=== PATIENT | male | born 1970 | race Asian ===

== ENCOUNTER 2025-06-22 06:58 | Day surgery (SDC) | payer OTHER ==
[~2025-06-22] VITALS: Ht 161.3 cm; Wt 63.1 kg
[~2025-06-22 06:58] MED LIST: SODIUM CHLORIDE 0.9% 1,000 ML ONE
[2025-06-22] MEDS ORDERED: LIDOCAINE 4% 50 ML SOLUTION TP ONE (06:59)
[2025-06-22] MEDS ORDERED: BENZOCAINE 20% 50 MCG/SPRAY 57 GM TP ONE (06:59)
[2025-06-22] MEDS ORDERED: ALBUTEROL SULFATE 2.5 MG/0.5 ML NEB SOLUTION NEB ONE (06:59)
[2025-06-22] MEDS ORDERED: LIDOCAINE 2% 11 ML JELLY TP ONE (06:59)
[2025-06-22] MEDS: SODIUM CHLORIDE 0.9% 1,000 ML IV ONE (08:00)
[2025-06-22] MEDS ORDERED: FentaNYL CITRATE PF 100 MCG/2 ML VIAL ONE (08:31)
[2025-06-22] MEDS ORDERED: MIDAZOLAM HCL 2 MG/2 ML VIAL ONE (08:32)
[2025-06-22 10:00] VITALS: PULSE 54; RESP 16; O2SAT 100
== END 2025-06-22 13:10 | disposition home or self-care (01) ==
LOC: SURGERY 06:58
PROVIDERS: ATTEND Internal Medicine Critical Care Medicine
DX: R05.3 Chronic cough (principal); R06.1 Stridor; J45.909 Unspecified asthma, uncomplicated; R04.2 Hemoptysis; J98.09 Other diseases of bronchus, not elsewhere classified; J84.10 Pulmonary fibrosis, unspecified; J98.8 Other specified respiratory disorders
CPT/HCPCS: 31623; 87206; 87101; 87220; 87070; 88108; 87186; 31624; 94640; 71045; 87015; J3010; J2250; J2919; J7030; J7613; Z7610